=== PATIENT | female | born 1980 | race Caucasian/White ===

== ENCOUNTER 2017-09-05 20:15 | Emergency (ER) | payer OTHER, BC ==
[~2017-09-05] VITALS: Ht 177.8 cm; Wt 110.0 kg
[~2017-09-05 20:15] MED LIST: HYDR-3580 PO; PERC5TAB12 PO; PREN0.01 PO
[2017-09-05 20:28] VITALS: BP 136/68; PULSE 88; RESP 18; TEMP 98.3; O2SAT 99
[2017-09-05 22:19] VITALS: BP 140/75; PULSE 86; RESP 18; O2SAT 96
[2017-09-05] MEDS ORDERED: CLON.5 PO (22:24)
[2017-09-05] MEDS ORDERED: CITA20TA4 PO (22:24)
[2017-09-05] MEDS ORDERED: MORPHINE SULFATE 8 MG/ML INJ IV PUSH ONE (23:00)
[2017-09-05] MEDS ORDERED: ONDANSETRON HCL 4 MG/2 ML VIAL IV ONE (23:00)
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
[2017-09-06] MEDS ORDERED: CYCL10TA PO (00:22)
[2017-09-06] MEDS ORDERED: PERC7.5T13 PO (00:22)
[2017-09-06 00:29] VITALS: BP 137/68; PULSE 75; RESP 16; O2SAT 96
[2017-09-06 00:54] VITALS: BP 133/70
== END 2017-09-06 01:06 | disposition home or self-care (01) ==
LOC: PHED 20:15
DX: S29.012A Strain of muscle and tendon of back wall of thorax, initial encounter (principal); S46.812A Strain of other muscles, fascia and tendons at shoulder and upper arm level, left arm, initial encounter; V43.52XA Car driver injured in collision with other type car in traffic accident, initial encounter
CPT/HCPCS: 72125; 72128; 96374; 96375; 99285; J2270; J2405